=== PATIENT | male | born 1970 | race Caucasian/White ===

== ENCOUNTER 2018-09-24 11:48 | Emergency (ER) | payer MEDICAID ==
[~2018-09-24] VITALS: Ht 165.1 cm; Wt 94.9 kg
[2018-09-24 12:00] VITALS: BP 134/89
[2018-09-24 13:00] VITALS: BP 154/59
== END 2018-09-24 13:00 | disposition home or self-care (01) ==
LOC: MED 11:48
DX: M25.461 Effusion, right knee (principal); X50.1XXA Overexertion from prolonged static or awkward postures, initial encounter; Y93.89 Activity, other specified; Y92.89 Other specified places as the place of occurrence of the external cause; Y99.8 Other external cause status
CPT/HCPCS: 29505; 73562; 99283; Q0092